=== PATIENT | male | born 1995 | race Caucasian/White ===

== ENCOUNTER 2025-07-31 01:29 | Emergency (ER) | payer BC, SELFPAY ==
[2025-07-31 02:03] VITALS: BP 115/69
[2025-07-31 02:30] LABS: COVID-19 Antigen Negative (Negative)
[2025-07-31] MEDS: DUONEB 3 ML INH ×2 (04:21→07:03)
[2025-07-31 07:00] VITALS: BP 117/79
[2025-07-31] MEDS: DELTASONE 50 MG PO (07:02)
[2025-07-31] MEDS: VIBRAMYCIN 100 MG PO (07:21)
--- NOTE | 2025-07-31 07:37 | ED.GENMED ---
History of Present Illness
General
Chief Complaint: Breathing Problem
Source: patient and family
Exam Limitations: none
Time Seen by Provider: 07/31/25 06:42
Nursing documentation reviewed up to this point in time: agreed with
History of Present Illness
History of Present Illness:
29-year-old male with a past medical history of mild intermittent asthma presents to the emergency department for evaluation of cough. Patient reports that he has had some nasal congestion for the past 2 weeks and postnasal drip. He says he has
had mild nonproductive cough as well. Over the past 3 days patient reports cough has been productive and he has had some associated wheezing and some chest tightness. Mildly increased shortness of breath. He has had asthma exacerbations in the
past although infrequently (reports last episode 5 years ago) that felt similar. He has not had fevers or chills. No swelling or pain in the legs. He has not had access to his albuterol inhaler and so is not been able to use this but has been
taking warm showers drinking hot tea without improvement.
Past History
Past History
ED Past Medical History: Asthma
Social History
Personal: Single
Review of Systems
Review of Systems
All Other Systems: ROS reviewed and negative except as documented in HPI and ROS
Constitutional: Denies fever or chills
EENT: Reports other (Nasal congestion)
Respiratory: Reports cough and trouble breathing
Cardiac: Denies chest pain or palpitations
ABD/GI: Denies abdominal pain
Musculoskeletal: Denies edema
Neurological: Denies headache
Phy Exam
Physical Exam
Physical Exam:
General: Awake, alert, oriented x3; no acute distress
Head: Normocephalic, atraumatic
Eyes: Conjunctiva normal, sclera anicteric
Throat: Airway intact, handling secretions
Neck: Trachea midline, supple without meningismus
Lungs: No tachypnea or hypoxia; he has bilateral diffuse expiratory wheezing with occasional cough through inspiration; he has very faint focal rales right upper lung
Heart: Tachycardia with regular rhythm, no murmurs, gallops, or rubs
Neuro: Grossly intact
Skin: Warm and dry
Extremities: No edema in extremities, warm and well-perfused
Scores
Heart Failure Risk
Heart Failure Risk Score: Not Applicable
Heart Score for Chest Pain Patients
STEMI patient?: Not applicable
Withdrawal Assessment of Alcohol
Withdrawal Assessment Completed?: Not applicable
Course
Orders/Labs/Results
Orders:
Orders
07/31/25 02:11
COVID-19 Antigen Urgent
Source: Nasal Swab
Influenza A+B Rapid Molecular Urgent
JONO Source: Nasal Swab
Specimen Description:
07/31/25 04:20
Ipratropium/Albuterol Sulfate [Duoneb] 3 ml .ROUTE .STK-MED ONE
07/31/25 04:21
Ipratropium/Albuterol Sulfate [Duoneb] 3 ml INH R NOW ONE
07/31/25 06:57
Ipratropium/Albuterol Sulfate [Duoneb] 3 ml INH R NOW STA
Prednisone [Deltasone] 50 mg PO NOW STA
CR Chest - 2 Views Urgent
Comment:
Reason For Exam: cough, chest tightness
07/31/25 07:16
Doxycycline [Vibramycin] 100 mg PO NOW STA
Vital Signs
Initial and Last Documented VS:
Initial Vital Signs
Temp Pulse Resp BP Pulse Ox
37.1 C 104 16 115/69 95
07/31/25 02:03 07/31/25 02:03 07/31/25 02:03 07/31/25 02:03 07/31/25 02:03
Last Documented Vital Signs
Temp Pulse Resp BP Pulse Ox
37.1 C 103 18 117/79 97
07/31/25 02:03 07/31/25 07:00 07/31/25 07:00 07/31/25 07:00 07/31/25 07:00
MDM/Problems Addressed
Differential Diagnosis Includes:
Asthma exacerbation, bronchitis, pneumonia
MDM/Problems Addressed:
29-year-old male presents for evaluation of increased cough, chest tightness/wheezing in the setting of recent nasal congestion/postnasal drip. Vitals and exam as above. Viral swabs here were negative. Overall his symptoms seem most consistent
with asthma exacerbation possibly triggered by allergies; viral less likely given duration of his congestion. Given change in character of cough�productive over the past 3 days�Will check chest x-ray to rule out pneumonia. Treat with DuoNebs and
steroids.
Symptomatically improved with DuoNebs and steroids; chest x-ray reviewed by me question a faint opacity in the right upper lung and certainly on exam he does have some focal auditory findings here. Will plan to treat for community-acquired
pneumonia and asthma exacerbation. Clinically stable for trial of outpatient therapy; spoke about follow-up plan and return precautions all questions answered.
Chronic conditions affecting care:
Asthma
Acute Exacerbation and/or Progression of Chronic Illness:
Acute asthma exacerbation treated with steroids and nebs
Acute pneumonia treated with antibiotics
*Radiology
Radiology exam reviewed: preliminary read by ED provider
*Pulse Oximetry
SaO2: 97
Oxygen Mode of Delivery: Room air
Patient hypoxic: no (97%)
*Critical Care Note
Total Time (30-74mins, 75-104mins- exclusive of procedures): Not Applicable
Data Reviewed
Source: patient and family
Patient Management
Social determinants of health affecting care: Strong social support
Escalation/DeEscalation of care consider admission/obs:
Considered the need for admission
ED Attending Note
-
Portions of this chart may have been created with voice recognition software.� Occasional wrong word or��sound alike� substitutions may have occurred due to the inherent limitations of voice recognition software.
Discharge Plan
Departure
Patient Disposition: Home (Routine Discharge)
Date of Disposition: 07/31/25
Time of Disposition: 07:16
Patient with high blood pressure during this ER visit?: No
Discharge Problem:
Asthma exacerbation, Pneumonia
Instructions: Pneumonia in adults, Asthma in adults - ED (DC)
Prescriptions:
New
prednisone 50 mg tablet
50 mg PO DAILY Qty: 5 0RF
doxycycline hyclate 100 mg capsule
100 mg PO BID Qty: 14 0RF
albuterol sulfate [Ventolin HFA] 90 mcg/actuation HFA aerosol inhaler
2 puff inhalation Q6H PRN (Reason: shortness of breath or wheezing) Qty: 8.5 0RF
No Action
albuterol sulfate 1 PUFF HFA aerosol inhaler
1 puff inhalation [id number] PRN (Reason: asthma)
prednisone 50 MG tablet
50 mg PO DAILY Qty: 4 0RF
fluticasone propionate [Flovent HFA] 1 PUFF HFA aerosol inhaler
1 puff inhalation R BID Qty: 1 0RF
Referrals:
PRIVATE,PHYSICIAN [Family Provider, Internal Medicine]
Activity Restrictions/Additional Instructions:
Thank you for visiting the Emergency Department at [facility].
1. Please schedule a follow up appointment as directed. Call first thing tomorrow morning to make an appointment.
2. If indicated, please take your medications as instructed and indicated on discharge paperwork.
3. If any of your symptoms do not improve, or persist, or become more severe within 6-12 hours, please return to the emergency department for further care.
4. Please return to the emergency department if you develop a headache, neck pain/stiffness, fever greater than 100.4F, chest pain, shortness of breath, persistent nausea, vomiting, slurred speech, difficulty walking, numbness/tingling, weakness,
signs of infection or any other symptoms that are worrisome to you.
Please call [phone] if you have any questions.
Interventions
Interventions:
*General Assessment Last Done: 07/31/25 04:25
*Neglect/Abuse Screening Last Done: 07/31/25 04:25
*ED COVID-19 Vaccine History Last Done: 07/31/25 04:25
*ED Influenza Vaccine History Last Done: 07/31/25 04:25
[facility] Fall Risk Assessment Tool Last Done: 07/31/25 04:00
*Risk Screen - Suicide (C-SSRS) Last Done: 07/31/25 02:03
*Nursing Disposition Last Done: 07/31/25 07:26
ED- Cardiac Assessment Last Done: 07/31/25 04:25
ED- Pulmonary Assessment Last Done: 07/31/25 04:25
Discharge Date and Time
Discharge Date/Time: 07/31/25 07:33
Print Language: ARMENIAN
== END 2025-07-31 07:33 | disposition home or self-care (01) ==
LOC: EMR 01:29
PROVIDERS: Emergency Medicine; EMERGENCY PHYSICIAN Emergency Medicine
DX: J45.21 Mild intermittent asthma with (acute) exacerbation (principal); J18.9 Pneumonia, unspecified organism
CPT/HCPCS: 99284; 94640; 71046; 87502; 87811